=== PATIENT | female | born 1970 | race Caucasian/White ===

== ENCOUNTER → 2020-10-16 | Outpatient (REF) ==
--- NOTE | 2020-10-16 11:51 | REP ---
INDICATION: BACK LEG PAIN. COMPARISON: None. TECHNIQUE: Three views of the lumbar spine are provided. FINDINGS: Incidental note is made of an IUD in the central pelvis. Lumbar vertebral body heights are preserved. There is slight straightening. Degenerative disc narrowing is seen at L3-4 and L4-5 with discogenic spurring most pronounced at L3-4. There is a mild dextroconvex curvature on the AP view. Pedicles and posterior elements are intact. Sacrum and SI joints are unremarkable. Psoas margins are symmetric. IMPRESSION: Degenerative disc changes at L3-4 and L4-5. Straightening. Otherwise negative. <Electronically signed by Huber Serrano > 10/16/20 [id number]
== END ==
LOC: M PLAIMG 08:16 → M PLALAB 08:16
PROVIDERS: ATTEND Internal Medicine
DX: M51.36 Other intervertebral disc degeneration, lumbar region (principal); M79.606 Pain in leg, unspecified